=== PATIENT | female | born 1985 | race Asian ===

== ENCOUNTER 2020-05-13 22:15 | Observation (INO) ==
[2020-05-13] MEDS ORDERED: ONDANSETRON INJ 2 MG/ML 2 ML VIAL IV STA (22:34)
[2020-05-13] MEDS ORDERED: KETOROLAC TROMETHAMINE 15 MG/ML VIAL IV STA (22:34)
[2020-05-13] MEDS ORDERED: SODIUM CHLORIDE 0.9% 1000ML 1,000 ML IV SCH (22:45)
[2020-05-13 23:16] LABS: Basophils # (auto) 0.07 K/uL (0-0.2); Eosinophils # (auto) 0.03 K/uL (0-0.5); Eosinophils % (auto) 0.4 %; Hematocrit (blood only) 35.5 % (37-47); Hemoglobin 12.2 g/dL (12.0-16.0); Immature Granulocytes # (auto) 0.02 K/uL (0.00-0.02); Immature Granulocytes % (auto) 0.3 %; Lymphocytes # (auto) 1.45 K/uL (1.2-3.4); Lymphocytes % (auto) 21.5 %; Mean Corpuscular Hemoglobin 36.1 pg (25-34); Mean Corpuscular Hgb Conc 34.4 g/dL (32-36); Mean Platelet Volume 8.5 fL (7.4-10.4); Monocytes # (auto) 0.59 K/uL (0.11-0.59); Monocytes % (auto) 8.8 %; Neutrophils # (auto) 4.58 K/uL (1.4-6.5); Platelet Count 385 K/uL (130-400); RDW Coefficient of Variation 16.1 % (11.5-14.5); RDW Standard Deviation 61.9 fL (36.4-46.3); Red Blood Count 3.38 M/uL (4.2-5.4); White Blood Count 6.74 K/uL (4.8-10.8)
--- NOTE | 2020-05-13 23:22 | Emergency Department Note ---
Impression & Plan Acute epigastric pain, Nausea and vomiting ED Provider Note CHIEF COMPLAINT: Chest tightness, nausea and vomiting HISTORY OF PRESENTING ILLNESS: This is a 34-year-old female who presents to the emergency department by private vehicle with complaint of tightness and pain in the front of her rib cage under her breasts that has been ongoing for the past few days but got worse today. The patient states the pain is worse towards the middle and to the right side of her lower rib cage, she describes the pain as a tightness, it does not radiate, it feels worse when she lies flat, it is slight ly worse with taking a deep breath, and is worse with twisting side to side, and she currently rates the pain 6/10. She has tried ibuprofen without much relief. She has had associated nausea and vomiting today and has not had an appetite. She states she did not eat or drink at all today because of this. Her last p.o. intake was last night. She denies any fevers or chills. She denies any cough, shortness of breath, or URI symptoms. She denies any exposures concerning for COVID-19. She denies any upper chest pain or back pain, palpitations, dizziness or syncope. She denies any headaches. She denies any leg pain or swelling. She does not use any exogenous estrogen and denies any chance of . REVIEW OF SYSTEMS: A complete 10 point review of systems was reviewed with the patient with pertinent positives and negatives as per history of present illness. All else were negative. PAST MEDICAL HISTORY: No significant past medical or surgical history SOCIAL HISTORY: Lives at home, denies tobacco use ALLERGIES: No known allergies PHYSICAL EXAM: CONSTITUTIONAL: Pleasant and cooperative. Nontoxic-appearing and in no acute distress, but appears uncomfortable from the pain. Mildly dehydrated, but otherwise well appearing and well nourished. HEENT: Normocephalic, atraumatic. PERRL, EOMI. Pharynx normal. Tacky mucous membranes. NECK: Supple, full active range of motion without discomfort. No cervical adenopathy. RESPIRATORY: Clear to auscultation bilaterally with no wheezing, crackles, rhonchi or stridor. Equal expansion bilaterally. CARDIOVASCULAR: Regular rate and rhythm with no murmurs, rubs or gallops. Normal peripheral perfusion. No edema. CHEST WALL: Tenderness to palpation along the anterior lower rib cage, right side worse than the left, reproduces complaint. No swelling, erythema, or palpable crepitus. GASTROINTESTINAL: Significantly tender to palpation in the right upper quadrant and epigastric region, positive guarding. No rebound tenderness. Mild tenderness to palpation in the left upper quadrant. The remainder of the abdomen is nontender, soft and nondistended. No palpable masses or HSM. Bowel sounds present in all quadrants. No CVA tenderness bilaterally. MUSCULOSKELETAL: Full range of motion of all joints without discomfort. INTEGUMENTARY: No rash or other significant dermatologic conditions noted. NEUROLOGIC: Alert and oriented X 4 with normal affect. Normal strength and sensation in all 4 extremities. Normal speech. Normal gait observed. ED COURSE AND MEDICAL DECISION MAKING: CC: Patient presenting with complaint of chest tightness, nausea and vomiting DIFFERENTIAL DIAGNOSIS: Includes, but not limited to musculoskeletal pain, sprain/strain, costochondritis, cholecystitis, cholelithiasis, pancreatitis, gastritis, peptic ulcer disease, gastroenteritis, ACS, pericarditis, PE, pneumonia, among others. INTERPRETATION OF LABS: No leukocytosis, macrocytic anemia, normal platelets, mild hypokalemia, no other significant electrolyte abnormalities, low bicarb with open anion gap, normal renal function, elevated T bili and liver enzymes with a normal lipase. Troponin is undetectable. IMAGING: A 1 view chest x-ray was reviewed and read by myself and shows no pneumothorax, focal consolidation, or cardiomegaly, no acute findings by my interpretation. [facility] preliminary read as follows: Ultrasound right upper quadrant: Hepatic steatosis and hepatomegaly. There is a 9 x 6 mm nonshadowing focus in the gallbladder, likely a polyp. Given the size consider follow-up imaging in 1 year to ensure stability. No biliary dilation or acute cholecystitis. No free fluid. No hydronephrosis in the right kidney. CT abdomen/pelvis with IV contrast: Hepatic steatosis. Gallbladder, pancreas, spleen, adrenal glands, kidneys, and reproductive organs are unremarkable. Normal appendix. No acute abnormality along the GI tract. No free fluid, fluid collection, or free air. CTA of the chest: No pulmonary embolism. EKG: Shows sinus tachycardia with a rate of 105 bpm, normal intervals, no ectopy, T wave inversions in leads V2 and V3 by my interpretation. No previous EKG available for comparison. MEDICATION RECONCILIATION: I attest that I have personally reviewed the patient's current medication list. INITIAL VITAL SIGNS REVIEW: I reviewed the patient's initial vital signs and interpret them as follows: T: Low-grade fever; BP: Hypertensive; HR: Tachycardic; RR: Within normal limits; Pulse Ox: Within normal limits on room air. Blood pressure screening: The patient was found to have an elevated blood pressure, which was felt to be situational. MDM SUMMARY: Patient was evaluated at bedside, history and physical exam performed. Patient is alert and oriented, in no acute distress, resting calmly in the stretcher. She does appear uncomfortable from the pain. She is complaining of nausea, but is not actively vomiting. She is noted to have a low-grade fever on arrival and is also tachycardic and appears mildly dehydrated. She is nontoxic-appearing. Tenderness to palpation along the anterior rib cage and diffuse tenderness across the upper abdomen, most tender in the right upper quadrant and epigastric region with guarding. No acute abdomen. Lungs are clear throughout, no respiratory distress. Heart sounds are normal, tachycardic. Cardiac monitoring: An order was placed for continuous cardiac monitoring. The monitor shows a rate of 117 bpm with sinus tachycardia rhythm. An EKG was also reviewed at bedside, noting sinus tachycardia with T wave inversions in the anterior leads. Patient does endorse increased pain with lying flat and taking in a deep breath as well as certain movements from side to side. She is low risk for PE by Wells criteria, but cannot PERC out due to the tachycardia. Given her abdominal tenderness, nausea and vomiting, and low-grade fever, I have a higher suspicion for gallbladder disease. Orders were placed at bedside for labs including a troponin, UA, IV fluid bolus for hydration, IV Toradol for pain, IV Zofran for nausea, chest x-ray, and right upper quadrant ultrasound. Patient discussed with Dr. Collins, who agrees with my assessment, plan, and disposition. Labs and imaging reviewed as above, labs are notable for a mild macrocytic anemia, slightly low bicarb with an open anion gap, mild hypokalemia, and elevated T bili and liver enzymes. Lipase is normal. Troponin is undetectable. There is no leukocytosis. She is not . Chest x-ray is clear. Ultrasound reviewed as above, there is evidence for a gallbladder polyp, but no acute cholecystitis or evidence for biliary obstruction. I discussed all the findings with the patient and asked her regarding the elevated liver enzymes. She does admit to me now that she drinks alcohol fairly regularly. She states she has 1 to 2 glasses of wine every evening and drinks most days. She denies any hospital admissions related to alcohol in the past. Given the history of regular alcohol use, I question whether the patient may actually be an alcoholic, which would explain the metabolic acidosis and elevated liver enzymes, as well as the macrocytic anemia. A medical alcohol level and a lactate was ordered. Thiamine and D5W with normal saline bolus was ordered. The patient has persistent pain and tenderness on exam, therefore CT imaging was ordered of the chest, abdomen, and pelvis for further evaluation. The patient was offered something additional for pain, she states she is comfortable enough right now after the Toradol. CT imaging was reviewed as above and is all unremarkable. 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 IV Pepcid was ordered. I discussed these findings with the patient and recommended she follow-up with her PCP and discuss the option of an endoscopy if her symptoms do not improve. She was encouraged to stop drinking all alcohol and avoid NSAIDs for now, and to start taking an [id number] H2 rosy as well. The patient is still receiving IV fluids and medications, and her lactate and UA are still pending. The patient was signed out to Lonnie Ji PA-C, at change of shift, pending these results, and the patient will most likely be discharged home. The chart was completed utilizing [employer] Speech voice recognition software. Grammatical errors, random word insertions, pronoun errors, and incomplete sentences are an occasional consequence of this system due to software limitatio ns, ambient noise, and hardware issues. Any formal questions or concerns about the content, text, or information contained within the body of this dictation should be directly addressed to the nurse practitioner for clarification. Past Med/Surg History Surgical History No history of previous surgery (Chronic) Social History Preferred Language: Guyanese Feels Safe at Home: Yes Smoking Status: Never smoker Allergies Allergies Allergy/AdvReac Type Severity Reaction Status Date / Time No Known Allergies Allergy Verified 07/18/19 14:49 Home Meds Home Medications Medication Instructions Recorded Confirmed [id number] 2 ea PO UD PRN 05/13/20 05/13/20 [[place]endy-[place] Plus Night (asa)] Results & Data (ED) Vital Signs Vital Signs - 24 hr 05/13/20 22:17 05/13/20 22:49 05/14/20 03:30 Temperature 37.6 C H Temperature Source Oral Pulse Rate 122 H 115 H 91 H Pulse Rate from SpO2 Sensor 94 H Respiratory Rate 18 18 20 Respiratory Effort / Characteristics Non-Labored Spontaneous Respiratory Depth Normal Respiratory Pattern Regular Blood Pressure 157/101 H 131/96 Blood Pressure Mean 119 111 Blood Pressure Position Sitting Pulse Oximetry 97 99 97 Oxygen Delivery Method Room Air Room Air Sepsis Recent Fever Within 48 Hours No Sepsis Action Taken by Nursing No Action Required 05/14/20 03:53 05/14/20 03:54 05/14/20 04:00 Temperature Temperature Source Pulse Rate 105 H 89 Pulse Rate from SpO2 Sensor 89 Respiratory Rate 16 15 Respiratory Effort / Characteristics Respiratory Depth Respiratory Pattern Blood Pressure 131/96 125/93 Blood Pressure Mean 107 108 Blood Pressure Position Pulse Oximetry 96 98 Oxygen Delivery Method Sepsis Recent Fever Within 48 Hours Sepsis Action Taken by Nursing Laboratory Data Result diagrams: 05/13/20 23:00 05/13/20 23:00 Lab Results 05/13/20 05/13/20 05/13/20 Range/Units 23:00 23:00 23:00 WBC 6.74 (4.8-10.8) K/uL RBC 3.38 L (4.2-5.4) M/uL Hgb 12.2 (12.0-16.0) g/dL Hct 35.5 L (37-47) % MCV 105.0 H (80-100) fL MCH 36.1 H (25-34) pg MCHC 34.4 (32-36) g/dL RDW Std Deviation 61.9 H (36.4-46.3) fL RDW Coeff of Sanam 16.1 H (11.5-14.5) % Plt Count 385 (130-400) K/uL MPV 8.5 (7.4-10.4) fL Immature Gran % (Auto) 0.3 % Neut % (Auto) 68.0 % Lymph % (Auto) 21.5 % [place] % (Auto) 8.8 % Eos % (Auto) 0.4 % Baso % (Auto) 1.0 % Immature Gran # (Auto) 0.02 (0.00-0.02) K/uL Neut # (Auto) 4.58 (1.4-6.5) K/uL Lymph # (Auto) 1.45 (1.2-3.4) K/uL [place] # (Auto) 0.59 (0.11-0.59) K/uL Eos # (Auto) 0.03 (0-0.5) K/uL Baso # (Auto) 0.07 (0-0.2) K/uL PT 11.8 (9.0-12.0) Seconds INR 1.1 (0.9-1.1) APTT 25.2 (21.0-31.0) Seconds PTT Ratio 0.9 Sodium 139 (136-145) mmol/L Potassium 3.2 L (3.5-5.1) mmol/L Chloride 98 (98-107) mmol/L Carbon Dioxide 20 L (21-32) mmol/L Anion Gap 20.0 H (3-11) BUN 7 (7-18) mg/dl Creatinine 0.72 (0.6-1.2) mg/dl Est Cr Clr Drug Dosing 82.3 ml/min Est GFR ( Amer) 125.8 Est GFR (Non-Af Amer) 108.5 BUN/Creatinine Ratio 10.3 (10-20) Glucose 80 (70-99) mg/dl Lactate (0.4-2.0) mmol/L Calcium 8.8 (8.5-10.1) mg/dl Total Bilirubin 1.5 H (0.2-1) mg/dl AST 194 H (15-37) U/L ALT 117 H (12-78) U/L Alkaline Phosphatase 96 (45-117) U/L Troponin I < 0.015 (0-0.045) ng/ml Total Protein 8.1 (6.4-8.2) gm/dl Albumin 4.3 (3.4-5.0) gm/dl Globulin 3.8 (2.5-4.0) gm/dl Albumin/Globulin Ratio 1.1 (0.9-2) Lipase 164 (73-393) U/L HCG, Qual (Negative) Urine Color Urine Appearance (Clear) Urine pH (4.5-7.5) Ur Specific [place] (1.000-1.030) Urine Protein (Negative) Urine Glucose (UA) (Negative) Urine Ketones (Negative) Urine Blood (Negative) Urine Nitrite (Negative) Urine Bilirubin (Negative) Urine Urobilinogen (Negative) Ur Leukocyte Esterase (Negative) Ethyl Alcohol mg/dL (0-3) mg/dl 05/13/20 05/14/20 05/14/20 Range/Units 23:00 01:00 01:00 WBC (4.8-10.8) K/uL RBC (4.2-5.4) M/uL Hgb (12.0-16.0) g/dL Hct (37-47) % MCV (80-100) fL MCH (25-34) pg MCHC (32-36) g/dL RDW Std Deviation (36.4-46.3) fL RDW Coeff of Sanam (11.5-14.5) % Plt Count (130-400) K/uL MPV (7.4-10.4) fL Immature Gran % (Auto) % Neut % (Auto) % Lymph % (Auto) % [place] % (Auto) % Eos % (Auto) % Baso % (Auto) % Immature Gran # (Auto) (0.00-0.02) K/uL Neut # (Auto) (1.4-6.5) K/uL Lymph # (Auto) (1.2-3.4) K/uL [place] # (Auto) (0.11-0.59) K/uL Eos # (Auto) (0-0.5) K/uL Baso # (Auto) (0-0.2) K/uL PT (9.0-12.0) Seconds INR (0.9-1.1) APTT (21.0-31.0) Seconds PTT Ratio Sodium (136-145) mmol/L Potassium (3.5-5.1) mmol/L Chloride (98-107) mmol/L Carbon Dioxide (21-32) mmol/L Anion Gap (3-11) BUN (7-18) mg/dl Creatinine (0.6-1.2) mg/dl Est Cr Clr Drug Dosing ml/min Est GFR ( Amer) Est GFR (Non-Af Amer) BUN/Creatinine Ratio (10-20) Glucose (70-99) mg/dl Lactate 8.5 H* (0.4-2.0) mmol/L Calcium (8.5-10.1) mg/dl Total Bilirubin (0.2-1) mg/dl AST (15-37) U/L ALT (12-78) U/L Alkaline Phosphatase (45-117) U/L Troponin I (0-0.045) ng/ml Total Protein (6.4-8.2) gm/dl Albumin (3.4-5.0) gm/dl Globulin (2.5-4.0) gm/dl Albumin/Globulin Ratio (0.9-2) Lipase (73-393) U/L HCG, Qual Negative (Negative) Urine Color Urine Appearance (Clear) Urine pH (4.5-7.5) Ur Specific [place] (1.000-1.030) Urine Protein (Negative) Urine Glucose (UA) (Negative) Urine Ketones (Negative) Urine Blood (Negative) Urine Nitrite (Negative) Urine Bilirubin (Negative) Urine Urobilinogen (Negative) Ur Leukocyte Esterase (Negative) Ethyl Alcohol mg/dL < 3.0 (0-3) mg/dl 05/14/20 05/14/20 Range/Units 01:59 02:40 WBC (4.8-10.8) K/uL RBC (4.2-5.4) M/uL Hgb (12.0-16.0) g/dL Hct (37-47) % MCV (80-100) fL MCH (25-34) pg MCHC (32-36) g/dL RDW Std Deviation (36.4-46.3) fL RDW Coeff of Sanam (11.5-14.5) % Plt Count (130-400) K/uL MPV (7.4-10.4) fL Immature Gran % (Auto) % Neut % (Auto) % Lymph % (Auto) % [place] % (Auto) % Eos % (Auto) % Baso % (Auto) % Immature Gran # (Auto) (0.00-0.02) K/uL Neut # (Auto) (1.4-6.5) K/uL Lymph # (Auto) (1.2-3.4) K/uL [place] # (Auto) (0.11-0.59) K/uL Eos # (Auto) (0-0.5) K/uL Baso # (Auto) (0-0.2) K/uL PT (9.0-12.0) Seconds INR (0.9-1.1) APTT (21.0-31.0) Seconds PTT Ratio Sodium (136-145) mmol/L Potassium (3.5-5.1) mmol/L Chloride (98-107) mmol/L Carbon Dioxide (21-32) mmol/L Anion Gap (3-11) BUN (7-18) mg/dl Creatinine (0.6-1.2) mg/dl Est Cr Clr Drug Dosing ml/min Est GFR ( Amer) Est GFR (Non-Af Amer) BUN/Creatinine Ratio (10-20) Glucose (70-99) mg/dl Lactate 8.1 H* (0.4-2.0) mmol/L Calcium (8.5-10.1) mg/dl Total Bilirubin (0.2-1) mg/dl AST (15-37) U/L ALT (12-78) U/L Alkaline Phosphatase (45-117) U/L Troponin I (0-0.045) ng/ml Total Protein (6.4-8.2) gm/dl Albumin (3.4-5.0) gm/dl Globulin (2.5-4.0) gm/dl Albumin/Globulin Ratio (0.9-2) Lipase (73-393) U/L HCG, Qual (Negative) Urine Color Yellow Urine Appearance Clear (Clear) Urine pH 7.0 (4.5-7.5) Ur Specific [place] > 1.045 H (1.000-1.030) Urine Protein Negative (Negative) Urine Glucose (UA) 1+ H (Negative) Urine Ketones 3+ H (Negative) Urine Blood Negative (Negative) Urine Nitrite Negative (Negative) Urine Bilirubin Negative (Negative) Urine Urobilinogen Negative (Negative) Ur Leukocyte Esterase Negative (Negative) Ethyl Alcohol mg/dL (0-3) mg/dl Administered Medications Ioversol (Optiray 320 125ml) 125 ml IV ONCE PRN PRN Reason: Interaction Checking Stop: 05/18/20 00:47 Last Admin: 05/14/20 00:49 Dose: 118 ml Documented by: [id number] Discontinued Medications Sodium Chloride (Nss 1000ml) 1,000 mls @ 999 mls/hr IV .Q1H1M ROLY Stop: 05/13/20 23:45 Last Infusion: 05/14/20 00:23 Dose: 0 mls/hr Documented by: [id number] Admin: 05/13/20 23:09 Dose: 999 mls/hr Documented by: [id number] Dextrose/Sodium Chloride (D5w And Nss) 1,000 mls @ 999 mls/hr IV .Q1H1M STA Stop: 05/14/20 01:23 Last Infusion: 05/14/20 02:20 Dose: 0 mls/hr Documented by: [id number] Admin: 05/14/20 01:17 Dose: 999 mls/hr Documented by: [id number] Thiamine HCl 100 mg/ Syringe 10 mls @ 2 mls/min IV NOW STA Stop: 05/14/20 00:27 Last Admin: 05/14/20 01:17 Dose: 2 mls/min Documented by: [id number] Famotidine (Pepcid 20mg Iv Push) 20 mg in 5 mls @ 2.5 mls/min IV NOW STA Stop: 05/14/20 01:39 Last Admin: 05/14/20 01:40 Dose: 2.5 mls/min Documented by: [id number] Ketorolac Tromethamine (Toradol) 15 mg IV NOW STA Stop: 05/13/20 22:35 Last Admin: 05/13/20 23:09 Dose: 15 mg Documented by: [id number] Ondansetron HCl (Zofran) 4 mg IV NOW STA Stop: 05/13/20 22:35 Last Admin: 05/13/20 23:09 Dose: 4 mg Documented by: [id number] Discharge Plan Visit Data Chief Complaint: Cardiac Assessment Stated Complaint: CHEST TIGHTNESS, NAUSEA, VOMITING ED Provider: Dakota Collins ED Midlevel Provider: Lonnie Hanna Discharge Problem: Acute epigastric pain, Nausea and vomiting Discharge Instructions Krames/Other Patient Handouts: ED PEPTIC ULCER vs GASTRITIS, ED Alcohol Abuse Activity Restrictions/Additional Instructions: It has been a pleasure participating in your care today. You have been evaluated and treated in the Emergency Department today for your nausea/vomiting and upper abdominal/chest pain. Laboratory results and imaging studies have ruled out any emergent causes for your symptoms which would warrant admission or surgery. Your symptoms are suspected to be due to gastritis (inflammation of the lining of the stomach) it is most likely caused by your frequent alcohol use. It is recommended that you stop using alcohol altogether for now and limit alcohol use in the future. You should also avoid NSAIDs such as aspirin, ibuprofen, Advil, Aleve, naproxen, etc., as these can irritate gastritis and make it worse. You should start taking Pepcid (famotidine) 20 mg tablets, 1 tablet twice a day for the next few weeks until your symptoms have improved. Then you can decrease to once a day or as needed. This medication is available [id number], you do not need a prescription. Make sure you are drinking plenty of fluids to stay well-hydrated. Stick with a clear liquid diet until your nausea and vomiting have resolved, then slowly return to normal diet as tolerated. Please follow-up with your Primary Care Provider in the next few days for reassessment of your symptoms. You may benefit from an upper endoscopy for further evaluation if your symptoms persist, you should discuss this with your PCP. Please do not hesitate to return to the emergency department for severe worsening abdominal, persistent nausea/vomiting and unable to keep anything down, vomiting blood, bloody or black tarry stools, fevers > 101, severe dizziness or passing out, or any other concerns. Forms Stand Alone Forms: My [facility], [facility] Emergency Department, Important Visit Information Prescriptions Prescriptions: No Action Wendy-[place] Plus Night (asa) 6.25-7.8-10-500 mg Tablet, Effervescent 2 ea PO UD PRN (Reason: cold/cough) RF: 0 Referrals Referrals: PT,DECLINED [Primary Care Provider] - Discharge Problem: Nausea and vomiting Qualifiers: Vomiting type: unspecified Vomiting Intractability: non-intractable Qualified Code(s): R11.2 - Nausea with vomiting, unspecified
[2020-05-13 23:28] LABS: INR 1.1 (0.9-1.1); Partial Thromboplastin Ratio 0.9; Partial Thromboplastin Time 25.2 Seconds (21.0-31.0); Prothrombin Time 11.8 Seconds (9.0-12.0)
[2020-05-13 23:34] LABS: Alanine Aminotransferase 117 U/L (12-78); Albumin Level 4.3 gm/dl (3.4-5.0); Aspartate Aminotransferase 194 U/L (15-37); BUN Creatinine Ratio 10.3 (10-20); Blood Urea Nitrogen 7 mg/dl (7-18); Calcium 8.8 mg/dl (8.5-10.1); Carbon Dioxide 20 mmol/L (21-32); Chloride 98 mmol/L (98-107); Creatinine Clr Calc Pharmacy 82.3 ml/min; Est GFR (African American) 125.8; Est GFR (Non-African American) 108.5; Glucose 80 mg/dl (70-99); Lipase 164 U/L (73-393); Potassium 3.2 mmol/L (3.5-5.1); Sodium 139 mmol/L (136-145)
[2020-05-13 23:38] LABS: Albumin Globulin Ratio 1.1 (0.9-2); Alkaline Phosphatase 96 U/L (45-117); Bilirubin,Total 1.5 mg/dl (0.2-1); Globulin 3.8 gm/dl (2.5-4.0); Total Protein 8.1 gm/dl (6.4-8.2); Troponin I < 0.015 ng/ml (0-0.045)
[2020-05-13 23:48] LABS: Pregnancy Test, Serum Negative (Negative)
[2020-05-14] MEDS ORDERED: D5W AND NSS 1,000 ML IV STA (00:23)
[2020-05-14] MEDS ORDERED: THIAMINE HCL 100 MG in SYRINGE 9 ML IV STA (00:23)
[2020-05-14] MEDS ORDERED: OPTIRAY 320 125ml IV PRN (00:48)
[2020-05-14] MEDS ORDERED: FAMOTIDINE 20MG IV PUSH 20 MG/5 ML SYR IV STA (01:38)
[2020-05-14 02:02] LABS: Appearance Urine Clear (Clear); Bilirubin Urine Negative (Negative); Blood Urine Negative (Negative); Color Urine Yellow; Glucose Urine UA 1+ (Negative); Ketones Urine 3+ (Negative); Leukocyte Esterase Urine Negative (Negative); Nitrite Urine Negative (Negative); Protein Urine Negative (Negative); Specific Gravity Urine > 1.045 (1.000-1.030); Urobilinogen Urine Negative (Negative)
--- NOTE | 2020-05-14 04:08 | Emergency Department Note ---
ED Visit Note Patient case was signed out to me at 0100hrs on 05/14 at shift change from IRIS Nunez pending a few laboratory results. I went to personally reevaluate the patient at time of signout and she was resting comfortably. She did note that she had some mild upper abdominal discomfort. Patient was nontoxic in appearance. I reviewed the patient's CT scans. I reviewed her labs. I then will note that her lactic acid resulted and was 8.5. This was concerning and certainly there are many potential causes of this. Reassuringly, the patient looked well. This was then repeated and continued to trend downward but very slowly. I did add blood cultures to complete a thorough work-up. Despite her hydration here and persistent lactic acid elevation I do believe that further evaluation and management in the inpatient setting is warranted particularly in the setting of mild abdominal discomfort and vomiting. Patient was amenable to staying. I discussed the case with the attending physician as well as the hospitalist. Please refer to further documentation regarding her stay. . : Nausea and vomiting Qualifiers: Vomiting type: unspecified Vomiting Intractability: non-intractable Qualified Code(s): R11.2 - Nausea with vomiting, unspecified
[2020-05-14] MEDS ORDERED: SODIUM CHLORIDE 0.9% 1000ML 1,000 ML IV SCH (04:15)
--- NOTE | 2020-05-14 05:26 | History & Physical Report ---
Date of Service May 14, 2020 Assessment & Plan (1) Acute epigastric pain: Acute epigastric and right upper quadrant pain/abnormal LFTs/fatty liver- CTA chest abdomen pelvis, along with ultrasound right upper quadrant primarily show fatty liver. Order HIDA scan NM Famotidine 20 mg IV every 12 hours Zofran 4 mg IV every 6 hours PRN Ceftriaxone 1 g IV daily NSS + KCl 20 mEq at 150 mils per hour If HIDA scan is negative, will consider consulting gastroenterology for possible EGD. Patient reports drinking 2 glasses of wine daily, which may be giving her symptoms related to alcohol related gastritis/esophagitis. Present on Admission?: Yes (2) Abnormal LFTs: See above Present on Admission?: Yes (3) Fatty liver: See above Present on Admission?: Yes (4) Nausea and vomiting: Placed on Zofran 4 mg IV every 6 hours as needed Present on Admission?: Yes (5) Hypokalemia: Hypokalemia/dehydration- Place on NSS + KCl 20 mEq at 150 mils per hour Repeat laboratories in a.m. Present on Admission?: Yes (6) Dehydration: See above Present on Admission?: Yes (7) Lactic acidosis: Initial lactate level 8.5 we will follow-up 8.1 and then repeat a total of 3 hours after the first was 7.1. Repeat lactate again in 6 hours Present on Admission?: Yes History of Present Illness Chief Complaint: The patient presents to the emergency department with epigastric and right upper quadrant pain, with nausea and vomiting over the past few days, that worsened in the past 24 hours. Primary Care Provider: PT DECLINED The patient is a 34-year-old female with no significant past medical history who presents with the above symptoms. She does not regularly take NSAIDs, she tends to eat 2 meals a day, she does drink 2 glasses of wine daily. She has not had any recent travels or sick exposures. Allergies Allergy/AdvReac Type Severity Reaction Status Date / Time No Known Allergies Allergy Verified 07/18/19 14:49 Home Medications Home Medications Medication Instructions Recorded Confirmed Type bbtmmzfaft-wnhvzgls-II-aspirin 2 ea PO UD PRN 05/13/20 05/13/20 History [[facility] (asa)] Past Med/Surg History Surgical History No history of previous surgery (Chronic) Social History Preferred Language: Ukrainian Feels Safe at Home: Yes Smoking Status: Never smoker Review of Systems Review of Systems: The patient denies chest pain, palpitations, shortness of breath, dyspnea on exertion, cough, lower extremity swelling, sore throat, fevers, chills, sweats, diarrhea , constipation, pelvic pain, blood in urine or stool, dysuria, urinary frequency or urgency, lightheadedness, dizziness, headache, rash, abnormal bruising or bleeding, imbalance, focal or generalized weakness, numbness or tingling in arms or legs, generalized arthralgias or myalgias, back or neck pain, or night sweats. The review of systems is otherwise negative other than for that already noted above, and at least 10 systems have been reviewed. Physical Exam Physical Exam: The patient is awake, alert and oriented 3, well developed and well nourished, normocephalic and atraumatic, lying in bed and in no acute distress. HEENT--PERRL, EOMI, mucous membranes and oropharynx dry. Neck--supple. No JVD. No bruits. Thyroid normal, trachea midline, no adenopathy. Heart--normal S1 and S2. No murmurs, rubs or gallops. Lungs--clear bilaterally, no respiratory distress, no accessory muscle use. Abdomen--normal bowel sounds and soft. Tender epigastrium and right upper quadrant Extremities--no cyanosis or clubbing. No edema. Dermatologic--normal skin turgor, normal color, no abnormal lymph nodes, no rash. Neurologic--cranial nerves II through XII grossly intact. Rheumatologic--normal range of motion. Psychiatric--normal affect. Results & Data Results & Data ([facility]) Vital Signs (Past 12 Hours) Vital Signs Temp Pulse Resp BP Pulse Ox 05/14/20 04:00 89 15 125/93 98 05/14/20 03:54 105 H 05/14/20 03:53 16 131/96 96 05/14/20 03:30 91 H 20 131/96 97 05/13/20 22:49 115 H 18 99 05/13/20 22:17 99.7 F H 122 H 18 157/101 H 97 Laboratory Results Laboratory Results WBC 6.74 K/uL (4.8-10.8) 05/13/20 23:00 RBC 3.38 M/uL (4.2-5.4) L 05/13/20 23:00 Hgb 12.2 g/dL (12.0-16.0) 05/13/20 23:00 Hct 35.5 % (37-47) L 05/13/20 23:00 MCV 105.0 fL (80-100) H 05/13/20 23:00 MCH 36.1 pg (25-34) H 05/13/20 23:00 MCHC 34.4 g/dL (32-36) 05/13/20 23:00 RDW Std Deviation 61.9 fL (36.4-46.3) H 05/13/20 23:00 RDW Coeff of Sanam 16.1 % (11.5-14.5) H 05/13/20 23:00 Plt Count 385 K/uL (130-400) 05/13/20 23:00 MPV 8.5 fL (7.4-10.4) 05/13/20 23:00 Immature Gran % (Auto) 0.3 % 05/13/20 23:00 Neut % (Auto) 68.0 % 05/13/20 23:00 Lymph % (Auto) 21.5 % 05/13/20 23:00 Leake % (Auto) 8.8 % 05/13/20 23:00 Eos % (Auto) 0.4 % 05/13/20 23:00 Baso % (Auto) 1.0 % 05/13/20 23:00 Immature Gran # (Auto) 0.02 K/uL (0.00-0.02) 05/13/20 23:00 Neut # (Auto) 4.58 K/uL (1.4-6.5) 05/13/20 23:00 Lymph # (Auto) 1.45 K/uL (1.2-3.4) 05/13/20 23:00 Leake # (Auto) 0.59 K/uL (0.11-0.59) 05/13/20 23:00 Eos # (Auto) 0.03 K/uL (0-0.5) 05/13/20 23:00 Baso # (Auto) 0.07 K/uL (0-0.2) 05/13/20 23:00 PT 11.8 Seconds (9.0-12.0) 05/13/20 23:00 INR 1.1 (0.9-1.1) 05/13/20 23:00 APTT 25.2 Seconds (21.0-31.0) 05/13/20 23:00 PTT Ratio 0.9 05/13/20 23:00 Sodium 139 mmol/L (136-145) 05/13/20 23:00 Potassium 3.2 mmol/L (3.5-5.1) L 05/13/20 23:00 Chloride 98 mmol/L (98-107) 05/13/20 23:00 Carbon Dioxide 20 mmol/L (21-32) L 05/13/20 23:00 Anion Gap 20.0 (3-11) H 05/13/20 23:00 BUN 7 mg/dl (7-18) 05/13/20 23:00 Creatinine 0.72 mg/dl (0.6-1.2) 05/13/20 23:00 Est Cr Clr Drug Dosing 82.3 ml/min 05/13/20 23:00 Est GFR ( Amer) 125.8 05/13/20 23:00 Est GFR (Non-Af Amer) 108.5 05/13/20 23:00 BUN/Creatinine Ratio 10.3 (10-20) 05/13/20 23:00 Glucose 80 mg/dl (70-99) 05/13/20 23:00 Lactate 7.1 mmol/L (0.4-2.0) H* 05/14/20 04:11 Calcium 8.8 mg/dl (8.5-10.1) 05/13/20 23:00 Total Bilirubin 1.5 mg/dl (0.2-1) H 05/13/20 23:00 AST 194 U/L (15-37) H 05/13/20 23:00 ALT 117 U/L (12-78) H 05/13/20 23:00 Alkaline Phosphatase 96 U/L (45-117) 05/13/20 23:00 Troponin I < 0.015 ng/ml (0-0.045) 05/13/20 23:00 Total Protein 8.1 gm/dl (6.4-8.2) 05/13/20 23:00 Albumin 4.3 gm/dl (3.4-5.0) 05/13/20 23:00 Globulin 3.8 gm/dl (2.5-4.0) 05/13/20 23:00 Albumin/Globulin Ratio 1.1 (0.9-2) 05/13/20 23:00 Lipase 164 U/L (73-393) 05/13/20 23:00 HCG, Qual Negative (Negative) 05/13/20 23:00 Urine Color Yellow 05/14/20 01:59 Urine Appearance Clear (Clear) 05/14/20 01:59 Urine pH 7.0 (4.5-7.5) 05/14/20 01:59 Ur Specific [place] > 1.045 (1.000-1.030) H 05/14/20 01:59 Urine Protein Negative (Negative) 05/14/20 01:59 Urine Glucose (UA) 1+ (Negative) H 05/14/20 01:59 Urine Ketones 3+ (Negative) H 05/14/20 01:59 Urine Blood Negative (Negative) 05/14/20 01:59 Urine Nitrite Negative (Negative) 05/14/20 01:59 Urine Bilirubin Negative (Negative) 05/14/20 01:59 Urine Urobilinogen Negative (Negative) 05/14/20 01:59 Ur Leukocyte Esterase Negative (Negative) 05/14/20 01:59 Ethyl Alcohol mg/dL < 3.0 mg/dl (0-3) 05/14/20 01:00 Diagnostic Findings [facility] Patient: VERONICA BARAJAS (Female) : 83 Status: ER Date: 05/13/20 23:55 Room #: History: epigastric pain. nausea. fever Slices: 70 Priors: Tech: Bev Leoanrd @ [phone] Exams: US RUQ Accession Numbers: [id number] Preliminary Findings Only See Final Report For Complete Findings US RUQ: Hepatic steatosis and hepatomegaly. There is a 9 x 6 mm nonshadowing focus in the gallbladder, likely a polyp. Given the size consider follow-up imaging in one year to ensure stability. No biliary dilatation or acute cholecystitis. No free fluid. No hydronephrosis in the right kidney. Radiologist: Jerardo Person MD Study ready at 23:59 and initial results transmitted at 00:05 *This report constitutes a preliminary interpretation only. Non-acute findings felt to be unrelated to the clinical presentation may not be discussed in this report. The study will be interpreted and a final report will be generated by the local Radiologist the following shift. To reach the hospital radiology department call [phone]. If a discrepancy is found between the preliminary and final interpretations of this study, please notify us via our Client Portal at [email or web address].You can also fax this report with a description of the discrepancy, or include the final report, to our daytime fax number [phone].If faxing, please indicate the severity of discrepancy using one of the following categories: [ ] 1 - Agree/Informational [ ] 2 - Unlikely to Affect Management [ ] 3 - Possible Eventual Change of Management [ ] 4 - Probable Immediate Change of Management For all other patient related information, please fax us at [phone]. [id number] [facility] Patient: VERONICA BARAJAS (Female) : 83 Status: ER Date: 05/14/20 00:42 Room #: History: CHEST TIGHTNESS UNDER RIBS BILATERAL, PAIN AT UPPER ABD ELEVATED LFTS Slices: 527 Priors: Tech: Jabari Patiño @ [phone] Exams: CT ABDOMEN & PELVIS With Contrast Contrast: IV Amt: 118 ML OPTIRAY 320 Accession Numbers: [id number] Preliminary Findings Only See Final Report For Complete Findings CT ABDOMEN & PELVIS With Contrast: Hepatic steatosis. Gallbladder, pancreas, spleen, adrenal glands, kidneys, and reproductive organs are unremarkable. Normal appendix. No acute abnormality along the GI tract. No free fluid, fluid c ollection, or free air. Radiologist: Jerardo Person MD Study ready at 00:47 and initial results transmitted at 00:49 *This report constitutes a preliminary interpretation only. Non-acute findings felt to be unrelated to the clinical presentation may not be discussed in this report. The study will be interpreted and a final report will be generated by the local Radiologist the following shift. To reach the hospital radiology department call [phone]. If a discrepancy is found between the preliminary and final interpretations of this study, please notify us via our Client Portal at [email or web address].You can also fax this report with a description of the discrepancy, or include the final report, to our daytime fax number [phone].If faxing, please indicate the severity of discrepancy using one of the following categories: [ ] 1 - Agree/Informational [ ] 2 - Unlikely to Affect Management [ ] 3 - Possible Eventual Change of Management [ ] 4 - Probable Immediate Change of Management For all other patient related information, please fax us at [phone]. [id number] [facility] Patient: VERONICA BARAJAS (Female) : 83 Status: ER Date: 05/14/20 00:47 Room #: History: CHEST TIGHTNESS UNDER RIBS BILATERAL, PAIN AT UPPER ABD ELEVATED LFTS Slices: 593 Priors: Tech: Jabari Patiño @ [phone] Exams: CTA CHEST Contrast: IV Amt: 118 ml optiray 320 Accession Numbers: [id number] Preliminary Findings Only See Final Report For Complete Findings CTA CHEST: No acute pulmonary embolus. Normal caliber of the aorta without dissection. Unremarkable appearance of the heart. No consolidation, interstitial edema, pneumothorax, or pleural effusion. Hepatic steatosis. No fracture. Radiologist: Jerardo Person MD Study ready at 00:59 and initial results transmitted at 01:03 *This report constitutes a preliminary interpretation only. Non-acute findings felt to be unrelated to the clinical presentation may not be discussed in this report. The study will be interpreted and a final report will be generated by the local Radiologist the following shift. To reach the hospital radiology department call [phone]. If a discrepancy is found between the preliminary and final interpretations of this study, please notify us via our Client Portal at [email or web address].You can also fax this report with a description of the discrepancy, or include the final report, to our daytime fax number [phone].If faxing, please indicate the severity of discrepancy using one of the following categories: [ ] 1 - Agree/Informational [ ] 2 - Unlikely to Affect Management [ ] 3 - Possible Eventual Change of Management [ ] 4 - Probable Immediate Change of Management For all other patient related information, please fax us at [phone]. [id number] Code Status & VTE Plan Code Status Full code VTE Prophylaxis Plan VTE Prophylaxis will be ordered: Yes PG Care Time/CCT Total # of Minutes Spent Total Time Spent with Patient: Total time spent is greater than 50% in coordination of care (as documented) at patient's floor/unit and/or counseling patient: Coding Level of Care Code 91783 Initial Inpt Care Lvl 3 Diagnoses Acute epigastric pain R10.13 Abnormal LFTs R94.5 Fatty liver K76.0 Nausea and vomiting R11.2 Vomiting Intractability: non-intractable Vomiting type: unspecified Hypokalemia E87.6 Dehydration E86.0 Lactic acidosis E87.2 (1) Nausea and vomiting Vomiting Intractability: non-intractable Vomiting type: unspecified Qualified Code(s): R11.2 - Nausea with vomiting, unspecified
--- NOTE | 2020-05-14 06:31 | XRay Report ---
XR chest 1V portable CLINICAL HISTORY: Chest Pain dyspnea COMPARISON STUDY: No previous studies for comparison. FINDINGS: The bones soft tissues and hemidiaphragms are normal. The cardiomediastinal silhouette is n ormal. The lungs are clear. The pulmonary vasculature is normal. IMPRESSION: Negative chest. ACT 112: Negative or not required by law. The above report was generated using voice recognition software. It may contain grammatical, syntax or spelling errors. Electronically signed by: Bentley Holliday M.D. 05/14/2020 6:29 AM
--- NOTE | 2020-05-14 06:50 | CT Scan Report ---
CT abd pelvis IV con only CT DOSE: 471.67 mGy.cm HISTORY: Pain upper abd pain, n/v, elevated LFTs TECHNIQUE: Multiaxial CT images of the abdomen and pelvis were performed following the use of intrave nous contrast. A dose lowering technique was utilized adhering to the principles of ALARA. COMPARISON STUDY: None. FINDINGS: The lung bases are clear. The liver, spleen, gallbladder, pancreas, kidneys, and adrenal gl ands are within normal limits. No bowel wall thickening or obstruction. The pelvic organs are unremar kable. No suspicious lytic or blastic osseous lesions. Mild fatty replacement of the liver. IMPRESSION: No significant abnormality identified within the abdomen or pelvis. Fatty replacement of the liver. ACT 112: Negative or not required by law. The above report was generated using voice recognition software. It may contain grammatical, syntax or spelling errors. Electronically signed by: Bentley Holliday M.D. 05/14/2020 6:49 AM
--- NOTE | 2020-05-14 06:58 | CT Scan Report ---
CT angio chest PE protocol CT DOSE: HISTORY: Dyspnea chest tightness lower ribs TECHNIQUE: Multiaxial CT images of the chest were performed following the intravenous administration of contrast to evaluate the pulmonary arteries. Maximal intensity projection images were also obtaine d. A dose lowering technique was utilized adhering to the principles of ALARA. COMPARISON STUDY: None. FINDINGS: There is a normal caliber thoracic aorta with no evidence for dissection. There is no evide nce for pulmonary embolus. No pleural effusions. No pneumothorax. The liver and spleen are unremarkab le. No mediastinal or hilar lymphadenopathy. The central airways are patent. The lungs are clear. IMPRESSION: No evidence for pulmonary embolus. The lungs are clear. Fatty replacement of the liver. ACT 112: Negative or not required by law. The above report was generated using voice recognition software. It may contain grammatical, syntax or spelling errors. Electronically signed by: Bentley Holliday M.D. 05/14/2020 6:56 AM
[2020-05-14] MEDS ORDERED: NSS + 20MEQ KCL 20 MEQ/1,000 ML BAG IV SCH (07:15)
[2020-05-14] MEDS ORDERED: ONDANSETRON INJ 2 MG/ML 2 ML VIAL IV PRN (07:15)
[2020-05-14] MEDS ORDERED: cefTRIAXone SODIUM 1,000 MG in DEXTROSE 5% 50 ML IV SCH (07:15)
--- NOTE | 2020-05-14 08:01 | Ultrasound Report ---
US gallbladder CLINICAL HISTORY: RUQ pain, n/v COMPARISON STUDY: No previous studies for comparison. FINDINGS: The liver is echogenic. No hepatic lesions are identified. There is no biliary ductal dilat ation. The common bile measures 5 mm in caliber. Note is made of a 9 mm nonmobile echogenic focus wit hin the gallbladder. This favors a polyp. A tiny gallbladder polyp along anterior wall is noted. Ther e are possible additional polyps versus small stones within the gallbladder fundus. There is no gallb ladder wall thickening. No pericholecystic fluid is noted. Sonographic Youngblood sign could not be asses sed for in this patient. Pancreas is unremarkable by sonography although the tail is slightly obscure d. There is no right hydronephrosis. IMPRESSION: 1. Fatty infiltration of the liver. 2. 9 mm nonmobile echogenic focus within the gallbladder. A polyp is favored although a nonshadowing stone could appear similar. 3. Possible additional tiny polyps versus small stones within the gallbladder fundus. No gallbladder wall thickening. Sonographic Youngblood sign could not be assessed for in this patient. ACT 112: Negative or not required by law. Electronically signed by: Yuriy Workman M.D. 05/14/2020 8:00 AM
--- NOTE | 2020-05-14 08:07 | Hospitalist Progress Note ---
Date of Service May 14, 2020 Assessment & Plan (1) Acute epigastric pain: Acute epigastric and right upper quadrant pain/abnormal LFTs/fatty liver- CTA chest abdomen pelvis, along with ultrasound right upper quadrant primarily show fatty liver. HIDA scan shows normal gallbladder filling at 50 minutes Famotidine 20 mg IV every 12 hours Zofran 4 mg IV every 6 hours PRN Discontinue antibiotics as we do not have a source of infection at this time NSS + KCl 20 mEq at 150 mils per hour If symptoms persist consider consulting gastroenterology for possible EGD. Patient reports drinking 2 glasses of wine daily, which may be giving her symptoms related to alcohol related gastritis/esophagitis she may be drinking more than these 2 glasses which would account for her fatty liver.. (2) Lactic acidosis: Initial lactate level 8.5 we will follow-up 8.1 and then repeat a total of 3 hours after the first was 7.1. Lactic acid is improved to 2.8 with hydration there is no focal signs or symptoms of infection or ischemic bowel this was an anion gap associate lactic acidosis of course (3) Abnormal LFTs: See above (4) Fatty liver: See above (5) Nausea and vomiting: Placed on Zofran 4 mg IV every 6 hours as needed (6) Hypokalemia: Hypokalemia/dehydration- Place on NSS + KCl 20 mEq at 150 mils per hour Repeat laboratories in a.m. (7) Dehydration: See above Admission and Anticipated Discharge Date Admission Date: May 14, 2020 Subjective pt has improved but persistent abdominal discomfort, did have negative HIDA scan and will give a trial of clear liquids, did also have reduction in lactic acid with conservative treatment ( hydration ) Review of Systems Review of Systems: Mild distress and fatigue no headache, blurry or double vision no speech or swallowing issues no chest pain, pressure or palpitations no shortness of breath, cough or wheezes Upper abdominal pain from across the top of her abdomen, no nausea or vomiting, no diarrhea or constipation (did have constipation last week) She is noticed no changes in her urinary habits or health no focal joint pain or swelling no back pain, CVA tenderness or radicular pain no bruising, bleeding or rashes no focal signs of weakness or numbness or altered sensation no complaints or anxiety or depression. Physical Exam Physical Exam: The patient appeared well nourished and normally developed. Vital signs as documented. Head exam is normocephalic atraumatic no scleral icterus Neck is without JVD, thyromegaly, or carotid bruits. Lungs are clear to auscultation, no focal loss of breath sounds Cardiac exam, Rhythm is regular.. No murmurs, rubs or gallops. Abdominal exam reveals normal bowel sounds, soft she is tender in the upper abdomen there is no organomegaly focal tenderness rebound or guarding Extremities are nonedematous and both pedal pulses are normal. Neurologic exam is alert and oriented, no focal loss of strength or sensation Skin is without bruises or rashes Psychologically is with unusual affect seemingly nervous or jumpy Results & Data Results & Data ([facility]) Vital Signs (Past 12 Hours) Vital Signs Temp Pulse Pulse Resp BP BP Pulse Ox 05/14/20 07:18 98.8 F 92 H 18 113/75 97 05/14/20 05:46 135/76 05/14/20 05:00 99.1 F 103 H 20 148/85 H 98 05/14/20 04:00 89 15 125/93 98 05/14/20 03:54 105 H 05/14/20 03:53 16 131/96 96 05/14/20 03:30 91 H 20 131/96 97 05/13/20 22:49 115 H 18 99 05/13/20 22:17 99.7 F H 122 H 18 157/101 H 97 PG Care Time/CCT Total # of Minutes Spent Total Time Spent with Patient: Total time spent is greater than 50% in coordination of care (as documented) at patient's floor/unit and/or counseling patient: Coding Level of Care Code 11376 Subseq Hosp Care Lvl 3 Diagnoses Acute epigastric pain R10.13 Lactic acidosis E87.2 Abnormal LFTs R94.5 Fatty liver K76.0 Nausea and vomiting R11.2 Vomiting Intractability: non-intractable Vomiting type: unspecified Hypokalemia E87.6 Dehydration E86.0 (1) Nausea and vomiting Vomiting Intractability: non-intractable Vomiting type: unspecified Qualified Code(s): R11.2 - Nausea with vomiting, unspecified
[2020-05-14 08:43] LABS: Basophils # (auto) 0.05 K/uL (0-0.2); Basophils % (auto) 0.9 %; Eosinophils # (auto) 0.01 K/uL (0-0.5); Eosinophils % (auto) 0.2 %; Hematocrit (blood only) 29.7 % (37-47); Immature Granulocytes # (auto) 0.01 K/uL (0.00-0.02); Immature Granulocytes % (auto) 0.2 %; Lymphocytes # (auto) 1.38 K/uL (1.2-3.4); Lymphocytes % (auto) 23.5 %; Mean Corpuscular Hgb Conc 33.7 g/dL (32-36); Mean Corpuscular Volume 103.8 fL (80-100); Mean Platelet Volume 8.8 fL (7.4-10.4); Monocytes # (auto) 0.68 K/uL (0.11-0.59); Monocytes % (auto) 11.6 %; Neutrophils # (auto) 3.75 K/uL (1.4-6.5); Neutrophils % (auto) 63.6 %; Platelet Count 268 K/uL (130-400); RDW Coefficient of Variation 16.2 % (11.5-14.5); RDW Standard Deviation 60.8 fL (36.4-46.3); Red Blood Count 2.86 M/uL (4.2-5.4); White Blood Count 5.88 K/uL (4.8-10.8)
[2020-05-14 09:11] LABS: Albumin Level 3.4 gm/dl (3.4-5.0); BUN Creatinine Ratio 6.9 (10-20); Calcium 7.7 mg/dl (8.5-10.1); Est GFR (African American) 139.2; Est GFR (Non-African American) 120.1; Potassium 3.5 mmol/L (3.5-5.1)
[2020-05-14 09:15] LABS: Albumin Globulin Ratio 1.1 (0.9-2); Bilirubin,Total 1.9 mg/dl (0.2-1); Total Protein 6.4 gm/dl (6.4-8.2)
--- NOTE | 2020-05-14 11:35 | Nuclear Medicine Report ---
NUCLEAR MEDICINE HEPATOBILIARY SCAN CLINICAL HISTORY: Abdominal pain. COMPARISON: CT of the abdomen and pelvis May 14, 2020. Right upper quadrant ultrasound May 13 0. TECHNIQUE: 5.1 mCi of technetium 99m Choletec IV was injected at 10:00 AM on May 14, 2020. Immedia tely following injection, imaging of the abdomen was carried out for 60 minutes in the anterior proje ction. FINDINGS: Hepatic uptake of radiotracer is prompt and homogeneous. Activity is identified within the common bile duct and the small bowel at 15 minutes. A small amount of radiotracer within the gallbla dder is noted at 50 minutes. This is within normal limits. Given the small amount of radiotracer with in the gallbladder, a gallbladder ejection fraction cannot be estimated. IMPRESSION: 1. Visualization of a small amount of radiotracer within the gallbladder at 50 minutes which is withi n normal limits. No evidence for acute cholecystitis. 2. Given small amount of radiotracer within the gallbladder, gallbladder ejection fraction cannot be estimated. ACT 112: Negative or not required by law. Electronically signed by: Yuriy Workman M.D. 05/14/2020 11:33 AM
[2020-05-14] MEDS: NSS + 20MEQ KCL 20 MEQ/1,000 ML BAG IV SCH ×2 (12:57→21:41)
[2020-05-14] MEDS: FAMOTIDINE 20 MG in SYRINGE 3 ML IV SCH ×2 (12:58→21:41)
[2020-05-14] MEDS: SINCALIDE 1.1 MCG in 0.9 % SODIUM CHLORIDE 100 ML IV SCH ×2 (14:32→18:06)
--- NOTE | 2020-05-14 15:22 | Electrocardiogram Report ---
Test Reason : Blood Pressure : / mmHG Vent. Rate : 105 BPM Atrial Rate : 105 BPM P-R Int : 132 ms QRS Dur : 068 ms QT Int : 362 ms P-R-T Axes : 063 053 021 degrees QTc Int : 478 ms Sinus tachycardia T wave abnormality, consider anterior ischemia Abnormal ECG No previous ECGs available Confirmed by Campos Cruz ([id number]) on 05/14/2020 3:22:33 PM Referred By: REFERRED SELF Confirmed By:Ras Cruz
--- NOTE | 2020-05-14 22:58 | Communication Note ---
Date of Service: May 14, 2020 Notified about 8pm that pt would like to leave and wanted to speak to her daytime hospitalist. Went up to see her and she was upset that she was being kept overnight as she was concerned about hospital costs. Apologized and explained the reasoning for her continued stay as documented in the note (continued symptoms, possible GI consult, monitoring of liver enzymes) Advised that she had the option of leaving AMA tonight but it might actually end up costing her more as insurance might not cover an AMA visit. Pt reluctantly agreed to stay but desired a room change as her current roommate was undergoing colonoscopy prep overnight and would be constantly in the shared bathroom. Pt moved from 286-1 to 251-1. Resident Activity Tracking Resident Involvement: Executive Assistant To General Counsel Coverage Note Care Provided: Adult Hospital Medicine
[2020-05-15] MEDS ORDERED: VANCOMYCIN CONSULT ACTIVE PRN (00:52)
--- NOTE | 2020-05-15 01:00 | Communication Note ---
Date of Service: May 15, 2020 Received notification that blood cx1 was growing gram positive cocci in clusters. Likely a contaminant. Given a loading dose of Vancomycin however. Resident Activity Tracking Resident Involvement: Video And Sound Recorder Coverage Note Care Provided: Adult Hospital Medicine
[2020-05-15] MEDS ORDERED: VANCOMYCIN HCL 1,250 MG in SODIUM CHLORIDE 0.9% 250 ML IV ONE (02:00)
[2020-05-15] MEDS ORDERED: Nursing to Pharmacy Communication SCH (04:45)
[2020-05-15 05:49] LABS: Basophils # (auto) 0.04 K/uL (0-0.2); Eosinophils # (auto) 0.03 K/uL (0-0.5); Eosinophils % (auto) 0.7 %; Hematocrit (blood only) 29.5 % (37-47); Hemoglobin 9.8 g/dL (12.0-16.0); Immature Granulocytes # (auto) 0.01 K/uL (0.00-0.02); Immature Granulocytes % (auto) 0.2 %; Lymphocytes # (auto) 1.82 K/uL (1.2-3.4); Lymphocytes % (auto) 44.1 %; Mean Corpuscular Hgb Conc 33.2 g/dL (32-36); Mean Corpuscular Volume 105.4 fL (80-100); Monocytes # (auto) 0.44 K/uL (0.11-0.59); Monocytes % (auto) 10.7 %; Neutrophils # (auto) 1.79 K/uL (1.4-6.5); Neutrophils % (auto) 43.3 %; Platelet Count 210 K/uL (130-400); RDW Coefficient of Variation 16.2 % (11.5-14.5); RDW Standard Deviation 62.1 fL (36.4-46.3); White Blood Count 4.13 K/uL (4.8-10.8)
[2020-05-15 06:23] LABS: Albumin Level 3.4 gm/dl (3.4-5.0); BUN Creatinine Ratio 5.6 (10-20); Calcium 7.3 mg/dl (8.5-10.1); Creatinine Clr Calc Pharmacy 123.4 ml/min; Est GFR (African American) 147.3; Est GFR (Non-African American) 127.1; Magnesium 1.5 mg/dl (1.8-2.4); Potassium 3.9 mmol/L (3.5-5.1)
[2020-05-15 06:26] LABS: Albumin Globulin Ratio 1.2 (0.9-2); Bilirubin,Total 1.5 mg/dl (0.2-1); Globulin 2.9 gm/dl (2.5-4.0); Total Protein 6.3 gm/dl (6.4-8.2)
[2020-05-15] MEDS: NSS + 20MEQ KCL 20 MEQ/1,000 ML BAG IV SCH (07:13)
[2020-05-15] MEDS: MAGNESIUM SULFATE / D5W 1 GM/100 ML BAG IV SCH ×2 (07:46→09:41)
[2020-05-15] MEDS: FAMOTIDINE 20 MG in SYRINGE 3 ML IV SCH (09:41)
[2020-05-15] MEDS ORDERED: VANCOMYCIN HCL 750 MG in SODIUM CHLORIDE 0.9% 250 ML IV SCH (10:00)
--- NOTE | 2020-05-15 11:40 | Discharge Summary ---
Date of Service May 15, 2020 Admission HPI Per Admitting Provider The patient is a 34-year-old female with no significant past medical history who presents with the above symptoms. She does not regularly take NSAIDs, she tends to eat 2 meals a day, she does drink 2 glasses of wine daily. She has not had any recent travels or sick exposures. Principal Diagnosis lactic acidosis resolved one set of blood cultures of 3 positive with gram positive felt to be contaminant Discharge Exam The patient appeared well Vital signs as documented. Lungs are clear to auscultation and appear unlabored Cardiac exam, Rhythm is regular.. No murmurs, rubs or gallops. Abdominal exam reveals normal bowel sounds, soft has some tenderness on her right lower rib cage no rashes associate this area musculoskeletal pain at best Extremities are nonedematous and both pedal pulses are normal. Neurologic exam is alert and oriented, no focal loss of strength or sensation Skin is without bruises or rashes Psychologically is without concerns for anxiety or depression Discharge Data Allergies Allergy/AdvReac Type Severity Reaction Status Date / Time No Known Allergies Allergy Verified 07/18/19 14:49 Consultations 05/14/20 03:53 ED Decision to Admit Stat Ordered Studies 05/13/20 22:34 US gallbladder Urgent 05/14/20 00:17 CT abd pelvis IV con only Urgent CT angio chest PE protocol Urgent Hospital Course (1) Acute epigastric pain: Acute epigastric and right upper quadrant pain/abnormal LFTs/fatty liver- CTA chest abdomen pelvis, along with ultrasound right upper quadrant primarily show fatty liver. HIDA scan shows normal gallbladder filling at 50 minutes This patient has had resolution of her symptom complex with very little intervention. She did have one blood culture for show gram-positive's however has no focal signs or symptoms of infection on abdominal imaging or clinical evaluations. 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 Continued on antibiotics at time of discharge. Patient reports drinking 2 glasses of wine daily, which may be giving her symptoms related to alcohol related gastritis/esophagitis she may be drinking more than these 2 glasses which would account for her fatty liver.. (2) Lactic acidosis: Initial lactate level 8.5 we will follow-up 8.1 and then repeat a total of 3 hours after the first was 7.1. Lactic acid is returned to normal with reduced hydration (3) Abnormal LFTs: See above slightly elevated fatty liver is present of note the patient states she most recently lost 40 pounds over the last 1 year (4) Fatty liver: Patient was informed of steatosis recommended a low-fat diet discussion with family physician with possible GI referral (5) Nausea and vomiting: Resolved (6) Hypokalemia: Resolved (7) Dehydration: Resolved Total Time Total Time Spent Total Time Spent (In Minutes): It required greater than 30 minutes to prepare this patient for discharge Discharge Plan Discharge Items Patient Disposition: Home - Self-Care Reason For Visit: ABDOMINAL PAIN, N/V Discharge Diagnosis: lactic acidosis resolved fatty liver noted Activity: Resume your previous activity Non-emergency contact: Primary Care Provider Call non-emergency contact if: you have any medication questions, your symptoms worsen and your pain is not controlled Follow-up/Referrals: Kylie Ruffin CRNP, MS, S[employer]IOR [employer] [Primary Care Provider] - 05/19/20 12:30 pm (Please, follow up at the [facility] Office with Kylie SIMMONS on TuesdayMay 19 at 12:30. *The office is located in [address] of [facility] [place] [facility] [place] to this hospital. If you need to change this appointment, call the office at [phone]. KYLIE SIMMONS WILL BE YOUR NEW PRIMARY CARE PROVIDER. PLEASE, REMEMBER TO TAKE YOUR INSURANCE CARD AND PHOTO ID WITH YOU TO THIS APPOINTMENT.) Diet: Low Fat Addtl Attending Provider Instructions: please abstain from alcohol use, see your new pcp as scheduled and discuss follow up for your fatty liver and abdominal pian please consider a multiple vitamin daily please take your once a day acid suppression medicine as prescribed, Pending Studies at Discharge: No Stand-Alone Forms: My [facility] [employer], Smoking Cessation Medications and DC Order Prescriptions: New pantoprazole [Protonix] 40 mg tablet,delayed release (DR/EC) 40 mg PO DAILY 28 Days Qty: 28 RF: 0 Discontinued Wendy-Star Plus Night (asa) 6.25-7.8-10-500 mg Tablet, Effervescent 2 ea PO UD PRN (Reason: cold/cough) RF: 0 Discharge Orders: Discharge Order (Routine); Ordered 05/15/20 Ordered By: Jameel Lima Admission Data Admit Date/Time: 05/14/20 04:41 Attending Provider: Jameel Lima Admit Provider: Jose Witt Primary Care Provider: Kylie Ruffin Other Providers: Jose Witt Coding Level of Care Code D/C Day Management >30 mins Diagnoses Acute epigastric pain R10.13 Lactic acidosis E87.2 Abnormal LFTs R94.5 Fatty liver K76.0 Nausea and vomiting R11.2 Vomiting Intractability: non-intractable Vomiting type: unspecified Hypokalemia E87.6 Dehydration E86.0
== END 2020-05-15 12:45 | disposition home or self-care (01) ==
LOC: 2N 22:15 → ED 22:15 → SUATTDRO 05-14 04:41 → 2N 05-14 05:46 → 2W 05-14 22:28